=== PATIENT | female | born 2000 | race Caucasian/White ===

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

== ENCOUNTER 2024-06-17 18:07 | Observation (INO) | payer MEDICAID, OTHER ==
[~2024-06-17] VITALS: Ht 162.6 cm; Wt 101.3 kg
[2024-06-17 19:11] VITALS: BP_SYST 130; PULSE 110; RESP 18; TEMP 97.8; O2SAT 95
[2024-06-17 20:01] LABS: BASOPHILS % (AUTO) 0.1 % (0.0-2.0); EOSINOPHILS % (AUTO) 0.4 % (0.0-4.0); HEMATOCRIT 46.9 % (36-48); HEMOGLOBIN 16.4 g/dL (12.0-16.0); LYMPHOCYTES % (AUTO) 26.1 % (20.5-51.5); MEAN CORPUSCULAR HEMOGLOBIN 32 pg (27-31); MEAN CORPUSCULAR HGB CONC 35 % (32-36); MEAN CORPUSCULAR VOLUME 92 fL (79.0-98.0); MONOCYTES # (AUTO) 0.4 K/uL (0.0-1.0); MONOCYTES % (AUTO) 3.7 % (1.7-9.3); NEUTROPHILS % (AUTO) 69.7 % (40.0-70.0); PLATELET COUNT (AUTO) 244 K/uL (130-430); RED BLOOD CELL COUNT(AUTO) 5.12 MIL/uL (4.2-6.2); RED CELL DISTRIBUTION WIDTH 13.5 % (9.0-15.0); WHITE BLOOD COUNT (AUTO) 11.5 K/uL (4.8-10.8)
[2024-06-17 20:28] LABS: CALCIUM 9.3 mg/dL (8.4-11.0); CREATININE 1.01 mg/dL (0.55-1.30); POTASSIUM 4.1 mmol/L (3.5-5.1)
[2024-06-17] MEDS: NACL 0.9% 1,000 ML IV ONE ×4 (21:12→23:38)
[2024-06-17 21:25] LABS: BILIRUBIN,URINE NEGATIVE (NEGATIVE); BLOOD, URINE NEGATIVE (NEGATIVE); CLARITY/URINE CLEAR (CLEAR); COLOR,URINE YELLOW (YELLOW); GLUCOSE,URINE 3+ (NEGATIVE); KETONES,URINE 3+ (NEGATIVE); LEUKOCYTE ESTERASE ,URINE NEGATIVE (NEGATIVE); NITRITE, URINE NEGATIVE (NEGATIVE); PROTEIN URINE NEGATIVE (NEGATIVE); UROBILINOGEN,URINE 0.2 (0.2-1.0)
[2024-06-17] MEDS: INSULIN REGULAR, HUMAN 10 UNITS/0.1 ML, 3 ML VIAL IVP ONE (21:31)
[2024-06-17 21:39] LABS: ABG O2 SAT% ESTIMATE 97.5 % (94.0-98.0); ALLEN'S TEST POSITIVE (P); BLOOD GAS BASE EXCESS -3.3 mmol/L (-2.0-3.0); BLOOD GAS HCO3 19.4 mmol/L (21.0-28.0); BLOOD GAS PCO2 29.2 mmHg (32.0-45.0); BLOOD GAS PO2 94.4 mmHg (83.0-108.0)
[2024-06-17 21:48] LABS: BACTERIA,URINE RARE /HPF (None Seen)
[2024-06-17] MEDS: INSULIN REGULAR, HUMAN 100 UNITS/ML, 3 ML VIAL SUBCUT ONE (22:58)
[2024-06-17] MEDS ORDERED: INSULIN REGULAR, HUMAN 10 UNITS/0.1 ML, 3 ML VIAL ONE (23:01)
[2024-06-17] MEDS ORDERED: INSU100I4 SUBQ (23:06)
[2024-06-17] MEDS ORDERED: ACETAMINOPHEN 325 MG TABLET PO PRN (23:45)
[2024-06-18] MEDS ORDERED: DEXTROSE 50% JECT 50 ML DISP.SYRIN IVP PRN
[2024-06-18 00:13] LABS: CREATININE 0.91 mg/dL (0.55-1.30)
[2024-06-18 00:19] LABS: BARBITURATE, URINE NEGATIVE (NEG <=200); BENZODIAZEPINE, URINE NEGATIVE (NEG <=150); CANNABINOID, URINE NEGATIVE (NEG <=50); COCAINE, URINE NEGATIVE (NEG <=150); METHAMPHETAMINES SCREEN,URINE NEGATIVE (NEG <=500); OPIATE, URINE NEGATIVE (NEG <=100); PHENCYCLIDINE SCREEN,URINE NEGATIVE (NEG <=25); URINE AMPHETAMINE NEGATIVE (NEG <=500); URINE METHADONE NEGATIVE (NEG <=200); URINE OXYCODONE SCREEN NEGATIVE (NEG <=100)
[2024-06-18 00:20] LABS: UR TRICYCLIC ANTIDEPRESSANTS NEGATIVE (NEG <=300)
[2024-06-18] MEDS: NACL 0.9% 1,000 ML IV SCH (00:41)
[2024-06-18] MEDS: POTASSIUM CHLORIDE 20 MEQ/PKT PACKET PO ONE (01:27)
[2024-06-18 01:32] LABS: BASOPHILS # (AUTO) 0.1 K/uL (0.0-0.2); BASOPHILS % (AUTO) 0.8 % (0.0-2.0); EOSINOPHILS # (AUTO) 0.1 K/uL (0.0-0.4); EOSINOPHILS % (AUTO) 0.6 % (0.0-4.0); HEMATOCRIT 39.6 % (36-48); HEMOGLOBIN 14.1 g/dL (12.0-16.0); LYMPHOCYTES # (AUTO) 3.4 K/uL (1.0-5.5); LYMPHOCYTES % (AUTO) 35.9 % (20.5-51.5); MEAN CORPUSCULAR HEMOGLOBIN 32 pg (27-31); MEAN CORPUSCULAR HGB CONC 36 % (32-36); MEAN CORPUSCULAR VOLUME 90 fL (79.0-98.0); MONOCYTES # (AUTO) 0.6 K/uL (0.0-1.0); MONOCYTES % (AUTO) 6.3 % (1.7-9.3); NEUTROPHILS # (AUTO) 5.4 K/uL (1.8-7.7); NEUTROPHILS % (AUTO) 56.4 % (40.0-70.0); PLATELET COUNT (AUTO) 212 K/uL (130-430); RED CELL DISTRIBUTION WIDTH 13.1 % (9.0-15.0); WHITE BLOOD COUNT (AUTO) 9.5 K/uL (4.8-10.8)
[2024-06-18 01:58] LABS: ACETONE, SERUM NEGATIVE (NEGATIVE)
[2024-06-18 01:59] LABS: CHOLESTEROL 140 mg/dL (<200); HDL CHOLESTEROL 45 mg/dL (>55); TRIGLYCERIDES 99 mg/dL (30-150)
[2024-06-18 02:01] LABS: ALANINE AMINOTRANSFERASE 10 U/L (12-78); ANION GAP 13 (5-15); ASPARTATE AMINOTRANSFERASE 15 U/L (10-37); CALCIUM 7.4 mg/dL (8.4-11.0); CARBON DIOXIDE 21 mmol/L (23-29); CHLORIDE 113 mmol/L (98-107); CREATININE 0.67 mg/dL (0.55-1.30); GFR AFRICAN AMERICAN 142 mL/min (>90); PHOSPHORUS 1.7 mg/dL (2.7-4.5); SODIUM SERUM 147 mmol/L (136-145); TOTAL BILIRUBIN 0.5 mg/dL (0.0-1.0); TOTAL PROTEIN, SERUM 5.5 g/dL (6.4-8.3); UREA NITROGEN, BLOOD 12 mg/dL (8-21)
[2024-06-18 02:10] LABS: GLUCOSE 49 mg/dL (74-106); POTASSIUM 2.6 mmol/L (3.5-5.1)
[2024-06-18 04:01] VITALS: BP_SYST 124; PULSE 86; RESP 16; TEMP 96.9
[2024-06-18 08:17] VITALS: BP_SYST 106; PULSE 68; RESP 17; TEMP 97.3; O2SAT 100
[2024-06-18 08:27] VITALS: O2SAT 100
[2024-06-18] MEDS: INSULIN GLARGINE 100 UNITS/ML, 10 ML VIAL SUBCUT SCH ×2 (09:22→22:37)
[2024-06-18] MEDS: INSULIN REGULAR, HUMAN 100 UNITS/ML, 3 ML VIAL (humuLIN R) SUBCUT PRN (12:17)
[2024-06-18 14:34] VITALS: BP_SYST 124; PULSE 82; RESP 18; TEMP 97.7; O2SAT 99
[2024-06-18 17:18] VITALS: BP_SYST 121; PULSE 80; RESP 18; TEMP 97.8; O2SAT 94
[2024-06-18] MEDS ORDERED: POTASSIUM CHLORIDE 20 MEQ TABLET.ER PO ONE (19:00)
[2024-06-18 20:00] VITALS: BP_SYST 112; PULSE 78; RESP 18; TEMP 97.9; O2SAT 97
[2024-06-18] MEDS: POTASSIUM CHLORIDE 20 MEQ TABLET.ER PO SCH (22:29)
[2024-06-19 00:04] VITALS: BP_SYST 112; PULSE 81; RESP 18; TEMP 98.4; O2SAT 99
[2024-06-19] MEDS: ACETAMINOPHEN 325 MG TABLET PO PRN (06:31)
[2024-06-19 07:19] LABS: BASOPHILS % (AUTO) 0.4 % (0.0-2.0); EOSINOPHILS # (AUTO) 0.1 K/uL (0.0-0.4); EOSINOPHILS % (AUTO) 1.4 % (0.0-4.0); HEMATOCRIT 44.5 % (36-48); LYMPHOCYTES # (AUTO) 3.7 K/uL (1.0-5.5); LYMPHOCYTES % (AUTO) 53.8 % (20.5-51.5); MEAN CORPUSCULAR HEMOGLOBIN 31 pg (27-31); MEAN CORPUSCULAR HGB CONC 34 % (32-36); MEAN CORPUSCULAR VOLUME 92 fL (79.0-98.0); MONOCYTES # (AUTO) 0.4 K/uL (0.0-1.0); MONOCYTES % (AUTO) 5.5 % (1.7-9.3); NEUTROPHILS # (AUTO) 2.6 K/uL (1.8-7.7); NEUTROPHILS % (AUTO) 38.9 % (40.0-70.0); PLATELET COUNT (AUTO) 211 K/uL (130-430); RED BLOOD CELL COUNT(AUTO) 4.82 MIL/uL (4.2-6.2); RED CELL DISTRIBUTION WIDTH 13.7 % (9.0-15.0); WHITE BLOOD COUNT (AUTO) 6.8 K/uL (4.8-10.8)
[2024-06-19 07:58] LABS: ALBUMIN 3.3 g/dL (3.4-4.8); CALCIUM 8.9 mg/dL (8.4-11.0); CREATININE 0.68 mg/dL (0.55-1.30); PHOSPHORUS 2.9 mg/dL (2.7-4.5); POTASSIUM 3.6 mmol/L (3.5-5.1); TOTAL BILIRUBIN 0.7 mg/dL (0.0-1.0); TOTAL PROTEIN, SERUM 6.4 g/dL (6.4-8.3)
[2024-06-19 08:00] VITALS: BP_SYST 117; PULSE 72; RESP 17; TEMP 96.8; O2SAT 99
[2024-06-19 10:00] VITALS: O2SAT 99
[2024-06-19 12:32] VITALS: BP_SYST 135; PULSE 85; RESP 16; TEMP 97.7; O2SAT 99
[2024-06-19] MEDS ORDERED: INSU100V9 SUBCUT (14:44)
[2024-06-19 15:34] VITALS: BP_SYST 135; PULSE 85; RESP 16; TEMP 97.7; O2SAT 99
== END 2024-06-19 16:05 | disposition home or self-care (01) ==
LOC: SED 18:07 → SIC 22:22 → SMU 06-18 03:35 → STU 06-18 04:00
PROVIDERS: ADMIT Internal Medicine; ATTEND Internal Medicine
DX: E10.10 Type 1 diabetes mellitus with ketoacidosis without coma (principal); E10.65 Type 1 diabetes mellitus with hyperglycemia; E87.6 Hypokalemia; E66.9 Obesity, unspecified; Z68.38 Body mass index [BMI] 38.0-38.9, adult; Z91.199 Patient's noncompliance with other medical treatment and regimen due to unspecified reason; Z79.899 Other long term (current) drug therapy
CPT/HCPCS: 96361 ×2; 96372 ×3; 96374; 80307; 80048; 81000; 81015; 81001; 82009 ×2; 84702; 85025 ×3; 36415 ×3; 93005; 36600; 82803; 99284; 82948 ×2; 80053 ×2; 80061; 83037; 83735 ×2; 84100 ×2; 87086; 70551; J1815 ×2; J7030 ×2; G0378 ×2